=== PATIENT | female | born 1995 | race Caucasian/White ===

== ENCOUNTER 2018-10-29 01:19 | Emergency (ER) | payer OTHER ==
[~2018-10-29] VITALS: Ht 160 cm; Wt 55.8 kg
[2018-10-29 01:21] VITALS: BP 115/76
[2018-10-29] MEDS ORDERED: PROPARACAINE OPHTH 0.5%, 15ML ONE (01:26)
[2018-10-29] MEDS ORDERED: FLUORESCEIN OPHTHALMIC 1 MG STRIP ONE (01:26)
== END 2018-10-29 02:07 | disposition home or self-care (01) ==
LOC: ED 02:00
DX: L03.213 Periorbital cellulitis (principal)
CPT/HCPCS: 99283

== ENCOUNTER 2018-10-30 12:32 | Emergency (ER) | payer OTHER ==
[~2018-10-30] VITALS: Ht 160 cm; Wt 56.7 kg
[2018-10-30 12:35] VITALS: BP 121/83
--- NOTE | 2018-10-30 12:52 | NUR ---
Assumed care of patient. Seen here Tuesday and diagnosed with left periorbital cellulitis. Patient started abx and states that she feels as if the pain has decreased, but the swelling has worsened. Denies blurry vision and dizziness. Will continue to monitor.
--- NOTE | 2018-10-30 13:14 | NUR ---
Patient/Caregiver given discharge instructions and they have confirmed that they understand the instructions. Patient ambulatory with steady gait.
== END 2018-10-30 13:15 | disposition home or self-care (01) ==
LOC: ED 13:09
DX: L03.213 Periorbital cellulitis (principal); H00.025 Hordeolum internum left lower eyelid
CPT/HCPCS: 99282